=== PATIENT | male | born 2000 | race Hispanic/Latino ===

== ENCOUNTER 2019-05-03 12:23 | Inpatient (IN) | payer SELFPAY, OTHER ==
[2019-05-03 12:48] LABS: Absolute Lymphocytes (CBC) 0.9 K/uL (0.7-4.9); Basophils % 0.1 % (0-1.3); Hematocrit 38.9 % (39.6-49.0); Lymphocytes % 3.9 % (15.3-44.8); MPV 13.6 fL (7.6-11.3); RBC Red Blood Cell Count 4.57 M/uL (4.33-5.43)
[2019-05-03 13:06] LABS: Albumin 1.9 g/dL (3.4-5.0); Bilirubin Total 2.3 mg/dL (0.2-1.0)
--- NOTE | 2019-05-03 13:09 | RAD REPORT ---
EXAM DESCRIPTION: [place] Single View05/03/2019 12:57 pm CLINICAL HISTORY: Chest pain COMPARISON: none FINDINGS: Mild to moderate bilateral patchy lung opacities are present. The heart is normal size IMPRESSION: Mild to moderate bilateral patchy lung opacities may indicate a viral pneumonia.
[2019-05-03 14:02] LABS: Blood Morphology Comment NOT SEEN (NOT SEEN); Platelet Estimate DECR; Platelets, Giant PRESENT; Toxic Granulation 1+
[2019-05-03] MEDS ORDERED: ACETAMINOPHEN 500 MG TAB ONE ×2 (15:02→15:31)
--- NOTE | 2019-05-03 15:06 | ER ---
Nurse's Notes [facility] Name: Amor Limon Age: 19 yrs Sex: Male : 2000 Arrival Date: 05/03/2019 Time: 12:32 Bed 16 Private MD: Diagnosis: Severe sepsis without septic shock;Viral pneumonia, not elsewhere classified Presentation: 05/02 12:30 Onset of symptoms is unknown. 12:36 Chief complaint: EMS states: Pt was diagnosed with the flu a week ago. Pt only taking wh Nyquil states he is not getting better. Pt fever 102.3 and Tachycardic at 145. Pt states [facility] [place]. Coronavirus screen: Patient reports a subjective fever or greater than 100.4F, or cough, or shortness of breath, or difficulty breathing. Surgical mask placed on patient. Patient moved to private room, placed in contact and droplet isolation with eye protection until further assessment. Patient denies travel on a cruise ship or to a country the [facility] currently lists as an affected area. Patient denies contact with known and/or suspected case of COVID-19. Ebola Screen: Patient negative for fever greater than or equal to 101.5 degrees Fahrenheit, and additional compatible Ebola Virus Disease symptoms Patient denies exposure to infectious person. Initial Sepsis Screen: Does the patient meet any 2 criteria? RR > 20 per min. Temp <36.0*C (96.8*F)) or > 38.3*C (100.9*F). HR > 90 bpm. Does the patient have a suspected source of infection? Yes: Other: Flu If YES to both, name of provider notified: Digna Hayden MD. Risk Assessment: Do you want to hurt yourself or someone else? Patient reports no desire to harm self or others. 12:36 Method Of Arrival: EMS: [facility] 12:36 Acuity: SHANIQUE 3 Historical: - Allergies: 12:39 No Known Allergies; - Home Meds: 12:39 None [Active]; - PMHx: 12:39 None; - PSHx: 12:39 None; - Immunization history:: Adult Immunizations not up to date. - Social history:: Smoking status: Patient/guardian denies using Patient/guardian denies using alcohol, street drugs, The patient lives with family. - Family history:: not pertinent. Screenin:39 Abuse screen: Denies threats or abuse. Denies injuries from another. Nutritional screening: No deficits noted. Tuberculosis screening: No symptoms or risk factors identified. Fall Risk None identified. Assessment: 12:45 Reassessment: Pt flagged for Sepsis HR 145, RR 32, Temp 101, MD at bedside, notified of Sepsis Protocol, MD stated no need for Septic Work up now. 13:00 General: Appears in no apparent distress. Behavior is calm, cooperative, appropriate wh for age. Pain: Denies pain. Neuro: Level of Consciousness is awake, alert, obeys commands, Oriented to person, place, time, situation, Appropriate for age. Cardiovascular: Heart tones S1 S2. Respiratory: Reports shortness of breath cough that is Airway is patent Respiratory effort is even, labored, shallow, Respiratory pattern is tachypnea Breath sounds are diminished bilaterally. GI: Abdomen is flat, non-distended. : No signs and/or symptoms were reported regarding the genitourinary system. EENT: Throat is pink. Derm: Skin is intact, is healthy with good turgor, Skin is pink, warm \T\ dry. normal. Musculoskeletal: Circulation, motion, and sensation intact. 13:10 Reassessment: Spoke with MD septic work up was ordered, Pt still tachypneic. 14:10 Reassessment: Pt still tachypneic, shallow breaths at 44, lung sounds diminished, spoke wh with MD, assessment done with order to put Pt on 2LNC. 15:19 Reassessment: No changes from previously documented assessment. Patient and/or family ll1 updated on plan of care and expected duration. Pain level reassessed. Patient is alert, oriented x 3, equal unlabored respirations, skin warm/dry/pink. To bedside commode for BM. Call light within reach.. 16:15 Reassessment: No changes from previously documented assessment. Patient and/or family ll1 updated on plan of care and expected duration. Pain level reassessed. Patient is alert, oriented x 3, equal unlabored respirations, skin warm/dry/pink. 16:33 Reassessment: PUI [id number]. 17:15 Reassessment: No changes from previously documented assessment. Patient and/or family ll1 updated on plan of care and expected duration. Pain level reassessed. Patient is alert, oriented x 3, equal unlabored respirations, skin warm/dry/pink. Vital Signs: 12:36 BP 121 / 69; Pulse 142; Resp 32; Temp 101; Pulse Ox 95% ; Weight 72.57 kg; Height 5 ft. 7 in. (170.18 cm); 13:00 BP 98 / 55; Pulse 119; Resp 34; Pulse Ox 95% on R/A; 14:00 BP 117 / 73; Pulse 111; Resp 41; Pulse Ox 97% on R/A; 15:00 BP 109 / 69; Pulse 105; Resp 36; Temp 98.3; Pulse Ox 97% ; 16:00 BP 111 / 66; Pulse 106; Resp 35; Pulse Ox 98% ; ll1 16:55 BP 104 / 69; Pulse 106; Resp 34; Pulse Ox 100% on 2 lpm NC; ll1 17:25 BP 110 / 72; Pulse 100; Resp 30; Pulse Ox 99% on 2 lpm NC; Pain 0/10; ll1 18:20 BP 115 / 62; Pulse 105; Resp 30; Temp 97.0; Pulse Ox 98% on 2 lpm NC; Pain 0/10; ll1 12:36 Body Mass Index 25.06 (72.57 kg, 170.18 cm) ED Course: 12:30 Maintain EMS IV. Dressing intact. Good blood return noted. Site clean \T\ dry. Gauge \T\ yumiko 3 site: 20-gauge in RAC. Patient maintains SpO2 saturation greater than 95% on room air. 12:30 Initial lab(s) drawn, by [facility], sent to lab. jp3 12:30 Patient has correct armband on for positive identification. Bed in low position. Call jp3 light in reach. Cool cloth applied. Verbal reassurance given. Pulse ox on. NIBP on. 12:30 Arm band placed on right wrist. 12:32 Patient arrived in ED. 12:33 Digna Hayden MD is Attending Physician. ma2 12:35 Yana Celis is Primary Nurse. 12:38 Triage completed. wh 12:43 Lipase Sent. jp3 12:44 CMP Sent. jp3 12:44 CBC with Diff Sent. jp3 12:57 Chest Single View XRAY In Process Unspecified. EDMS 13:20 Inserted saline lock: 20 gauge in left antecubital area, using aseptic technique. Blood wh collected. 15:05 Amara Rodriguez MD is Hospitalizing Provider. ma2 17:35 No provider procedures requiring assistance completed. Patient admitted, IV remains in ll1 place. Administered Medications: 13:20 Drug: NS 0.9% 2000 ml Route: IV; Rate: 1 bolus; Site: left antecubital; 14:00 Follow up: Response: No adverse reaction; IV Status: Completed infusion; IV Intake: ll1 2000ml 13:30 CANCELLED (Patient ): AZITHromycin 500 mg PO once ma2 13:30 Drug: TORadol 30 mg Route: IVP; Site: left antecubital; 13:30 Drug: AZITHromycin 500 mg Route: PO; 18:34 Follow up: Response: No adverse reaction; RASS: Alert and Calm (0) [facility] 13:50 Not Given (Other Intervention Used): covid 1 application PO bolus 15:01 Not Given (Physician Discretion): AZITHromycin 500 mg IVPB once over 1 hrs; (mix in 250 wh mL NS) 15:33 Drug: Tylenol 1000 mg Route: PO; 1 18:35 Follow up: Response: No adverse reaction; Temperature is decreased; Pain is decreased; 1 RASS: Alert and Calm (0) Intake: 14:00 IV: 2000ml; Total: 2000ml. 1 Outcome: 15:06 Decision to Hospitalize by Provider. ma2 17:33 Admitted to Tele accompanied by tech, via stretcher, room Room 417, Report called to [facility] Mabel Avendaño 17:33 Condition: improved 17:33 Instructed on the need for admit. 18:33 Patient left the ED. 1 Signatures: Dispatcher [employer] EDMS Kim Valenzuela RN RN Yana Celis Digna Hayden MD MD ma2 Mina Champagne 3 Mingo Paz RN RN 1 Corrections: (The following items were deleted from the chart) 14:58 12:36 BP 121 / 69; Pulse 142bpm; Resp 22bpm; Pulse Ox 95%; Temp 101F; 72.57 kg; Height 5 ft. 7 in.; BMI: 25.0; wh 14:58 12:33 Chief complaint: [facility]
--- NOTE | 2019-05-03 15:07 | EDPHYS ---
Physician Documentation [facility] Name: Amor Limon Age: 19 yrs Sex: Male : 2000 Arrival Date: 05/03/2019 Time: 12:32 Bed 16 Private MD: ED Physician Digna Hayden HPI: 05/02 15:03 This 19 yrs old Male presents to ER via EMS with complaints of cough. ma2 15:03 he states he tested positive for flu B 7 days ago, he is here with cough and tachypnea ma2 and tachycardia x 3 days . Onset: The symptoms/episode began/occurred gradually, 1 week(s) ago. Severity of symptoms: At their worst the symptoms were moderate in the emergency department the symptoms are unchanged. Historical: - Allergies: 12:39 No Known Allergies; wh - Home Meds: 12:39 None [Active]; wh - PMHx: 12:39 None; wh - PSHx: 12:39 None; wh - Immunization history:: Adult Immunizations not up to date. - Social history:: Smoking status: Patient/guardian denies using Patient/guardian denies using alcohol, street drugs, The patient lives with family. - Family history:: not pertinent. ROS: 15:03 Constitutional: Negative for fever, chills, and weight loss. ma2 15:03 All other systems are negative. Exam: 15:03 Constitutional: This is a well developed, well nourished patient who is awake, alert, ma2 and in no acute distress. Head/Face: Normocephalic, atraumatic. Eyes: Pupils equal round and reactive to light, extra-ocular motions intact. Lids and lashes normal. Conjunctiva and sclera are non-icteric and not injected. Cornea within normal limits. Periorbital areas with no swelling, redness, or edema. ENT: Nares patent. No nasal discharge, no septal abnormalities noted. Tympanic membranes are normal and external auditory canals are clear. Oropharynx with no redness, swelling, or masses, exudates, or evidence of obstruction, uvula midline. Mucous membranes moist. Neck: Trachea midline, no thyromegaly or masses palpated, and no cervical lymphadenopathy. Supple, full range of motion without nuchal rigidity, or vertebral point tenderness. No Meningismus. Chest/axilla: Normal chest wall appearance and motion. Nontender with no deformity. No lesions are appreciated. Cardiovascular: Regular rate and rhythm with a normal S1 and S2. No gallops, murmurs, or rubs. Normal PMI, no JVD. No pulse deficits. Abdomen/GI: Soft, non-tender, with normal bowel sounds. No distension or tympany. No guarding or rebound. No evidence of tenderness throughout. Male : Normal genitalia with no discharge or lesions. Skin: Warm, dry with normal turgor. Normal color with no rashes, no lesions, and no evidence of cellulitis. MS/ Extremity: Pulses equal, no cyanosis. Neurovascular intact. Full, normal range of motion. Neuro: Awake and alert, GCS 15, oriented to person, place, time, and situation. Cranial nerves II-XII grossly intact. Motor strength 5/5 in all extremities. Sensory grossly intact. Cerebellar exam normal. Normal gait. 15:03 Respiratory: moderate respiratory distress is noted, Respirations: labored breathing, Breath sounds: bronchial sounds, Respiratory rate: 40 Vital Signs: 12:36 BP 121 / 69; Pulse 142; Resp 32; Temp 101; Pulse Ox 95% ; Weight 72.57 kg; Height 5 ft. 7 in. (170.18 cm); 13:00 BP 98 / 55; Pulse 119; Resp 34; Pulse Ox 95% on R/A; 14:00 BP 117 / 73; Pulse 111; Resp 41; Pulse Ox 97% on R/A; 15:00 BP 109 / 69; Pulse 105; Resp 36; Temp 98.3; Pulse Ox 97% ; 16:00 BP 111 / 66; Pulse 106; Resp 35; Pulse Ox 98% ; ll1 16:55 BP 104 / 69; Pulse 106; Resp 34; Pulse Ox 100% on 2 lpm NC; ll1 17:25 BP 110 / 72; Pulse 100; Resp 30; Pulse Ox 99% on 2 lpm NC; Pain 0/10; ll1 18:20 BP 115 / 62; Pulse 105; Resp 30; Temp 97.0; Pulse Ox 98% on 2 lpm NC; Pain 0/10; ll1 12:36 Body Mass Index 25.06 (72.57 kg, 170.18 cm) MDM: 12:35 Patient medically screened. ma2 15:03 Differential Diagnosis altered mental status, sepsis, flu. Differential Diagnosis ma2 altered mental status, OVID 19 vs flu vs pneumonia . Data reviewed: vital signs, nurses notes. Counseling: I had a detailed discussion with the patient and/or guardian regarding: the historical points, exam findings, and any diagnostic results supporting the discharge/admit diagnosis, the presence of at least one elevated blood pressure reading (>120/80) during this emergency department visit, the need for further work-up and treatment in the hospital. Response to treatment: the patient's symptoms have markedly improved after treatment. 05/02 12:34 Order name: CBC with Diff; Complete Time: 14:10 [facility] 05/02 12:34 Order name: CMP; Complete Time: 13:09 [facility] 05/02 12:34 Order name: Lipase; Complete Time: 13:09 [facility] 05/02 13:13 Order name: Procalcitonin; Complete Time: 14:43 [facility] 05/02 13:13 Order name: Blood Culture Adult (2) [facility] 05/02 13:13 Order name: Flu; Complete Time: 14:59 [facility] 05/02 13:13 Order name: Strep; Complete Time: 14:59 [facility] 05/02 13:50 Order name: Misc. Lab Test ss 05/02 13:54 Order name: Lactate: recollect lactate; Complete Time: 14:42 bd 05/02 14:04 Order name: Manual Differential; Complete Time: 14:10 [facility] 05/02 15:29 Order name: Throat Culture [facility] 05/02 15:51 Order name: CBC with Automated Diff [facility] 05/02 15:51 Order name: CBC with Automated Diff [facility] 05/02 12:34 Order name: Chest Single View XRAY; Complete Time: 13:29 [facility] 05/02 15:51 Order name: CBC with Automated Diff [facility] 05/02 15:51 Order name: CBC with Automated Diff [facility] 05/02 15:51 Order name: Comprehensive Metabolic Panel [facility] 05/02 15:51 Order name: Comprehensive Metabolic Panel [facility] 05/02 15:51 Order name: Comprehensive Metabolic Panel [facility] 05/02 15:51 Order name: Comprehensive Metabolic Panel [facility] 05/02 15:51 Order name: Lipid Profile [facility] 05/02 15:51 Order name: Lipid Profile [facility] 05/02 15:51 Order name: CONS Pharmacy Consult EDFL 05/02 16:50 Order name: Clear Liquid EDFL Administered Medications: 13:20 Drug: NS 0.9% 2000 ml Route: IV; Rate: 1 bolus; Site: left antecubital; 14:00 Follow up: Response: No adverse reaction; IV Status: Completed infusion; IV Intake: ll1 2000ml 13:30 CANCELLED (Patient ): AZITHromycin 500 mg PO once wv2 13:30 Drug: TORadol 30 mg Route: IVP; Site: left antecubital; 13:30 Drug: AZITHromycin 500 mg Route: PO; 18:34 Follow up: Response: No adverse reaction; RASS: Alert and Calm (0) ll1 13:50 Not Given (Other Intervention Used): covid 1 application PO bolus ss 15:01 Not Given (Physician Discretion): AZITHromycin 500 mg IVPB once over 1 hrs; (mix in 250 wh mL NS) 15:33 Drug: Tylenol 1000 mg Route: PO; ll1 18:35 Follow up: Response: No adverse reaction; Temperature is decreased; Pain is decreased; ll1 RASS: Alert and Calm (0) Disposition: 05/03/19 15:06 Hospitalization ordered by Amara Rodriguez for Inpatient Admission. Preliminary diagnosis are Severe sepsis without septic shock, Viral pneumonia, not elsewhere classified. - Bed requested for Telemetry/MedSurg (Inpatient). - Status is Inpatient Admission. ll1 - Condition is Fair. - Problem is new. - Symptoms are unchanged. Signatures: Dispatcher [employer] EDFL Mariah Ho Yana Celis Digna Hayden MD MD ma2 Mingo Paz RN RN 1 Kim Valenzuela RN ss Corrections: (The following items were deleted from the chart) 13:30 12:34 AZITHromycin 500 mg PO once ordered. ma2 ma2 16:49 15:51 Regular ordered. EDFL EDFL 17:01 13:13 LACTATE+C.LAB.BRZ ordered. EDFL EDFL 17:12 15:06 Hospitalization Ordered by Amara Rodriguez MD for Inpatient Admission. Preliminary bd diagnosis is Severe sepsis without septic shock; Viral pneumonia, not elsewhere classified. Bed requested for Telemetry/MedSurg (Inpatient). Status is Inpatient Admission. Condition is Fair. Problem is new. Symptoms are unchanged. ma2 18:33 17:12 05/03/2019 15:06 Hospitalization Ordered by Amara Rodriguez MD for Inpatient ll1 Admission. Preliminary diagnosis is Severe sepsis without septic shock; Viral pneumonia, not elsewhere classified. Bed requested for Telemetry/MedSurg (Inpatient). Status is Inpatient Admission. Condition is Fair. Problem is new. Symptoms are unchanged. bd
--- NOTE | 2019-05-03 15:48 | P.HP ---
Patient History Date of Service: 05/03/19 Reason for admission: Shortness of breath History of Present Illness: Mr Limon is 19-year-old male who presented to the ER with complaints of shortness of breath and cough. Patient reported that he tested influenza B positive 7 days ago. His symptoms started 7 days ago with subjective fever, nonproductive cough, nausea, vomiting and diarrhea. He denied any abdominal pain. Patient progressively worsened and unable to tolerate p.o. intake. He denies any sick contacts or contact with COVID19+ person nor recent travel. Up on presentation to the hospital, patient was tachypneic and tachycardic; he has been resuscitated appropriately and currently in no obvious acute distress. Allergies No Known Allergies Allergy (Unverified 05/03/19 18:45) Home Medications: NK [No Home Meds] 05/03/19 - Past Medical/Surgical History Has patient received pneumonia vaccine in the past: No Diabetic: No Past Medical History: Patient denies medical history Past Surgical History: Patient denies surgical history - Social History Smoking Status: Never smoker Smoking therapy provided: No Alcohol use: No CD- Drugs: No Caffeine use: No Review of Systems General: Fever, Chills, Sweats, Weakness, Malaise Respiratory: Cough, Shortness of Breath, SOB with Excertion, Pleuritic Pain, Wheezing Cardiovascular: Chest Pain Gastrointestinal: Nausea, Vomiting, Diarrhea Genitourinary: Unremarkable Musculoskeletal: Unremarkable Integumentary: Unremarkable Neurological: Unremarkable Lymphatics: Unremarkable Physical Examination - Physical Exam General: Alert, In no apparent distress HEENT: Atraumatic, PERRLA, Mucous membr. moist/pink, EOMI, Sclerae nonicteric Neck: Supple, 2+ carotid pulse no bruit, No LAD, Without JVD or thyroid abnormality Respiratory: Diminished, Crackles/rales Cardiovascular: Regular rate/rhythm, Normal S1 S2 Gastrointestinal: Normal bowel sounds, No tenderness Musculoskeletal: No tenderness Integumentary: No rashes Neurological: Normal gait, Normal speech, Normal strength at 5/5 x4 extr, Normal tone, Normal affect Lymphatics: No axilla or inguinal lymphadenopathy - Studies Laboratory Data (last 24 hrs) 05/03/19 12:30: Sodium 133 L, Potassium 3.0 L, BUN 19 H, Creatinine 1.06, Glucose 145 H, Total Bilirubin 2.3 H, AST 30, ALT 19, Alkaline Phosphatase 145 H , Lipase 52 L 05/03/19 12:30: WBC 23.9 H*, Hgb 13.3 L, Hct 38.9 L, Plt Count 33 L* Microbiology Data (last 24 hrs): 05/03/19 13:26 Throat Group A Streptococcus Rapid Screen - Final 05/03/19 13:26 Nasopharnyx Influenza Type A Antigen Screen - Final 05/03/19 13:26 Nasopharnyx Influenza Type B Antigen Screen - Final Assessment and Plan Discharge Plan: Home - Advance Directives Does patient have a Living Will: No Does patient have a Durable POA for Healthcare: No Physician Review: Patient Assessed, Agree with Above Assessment and Plan Physician Review Additional Text: Mr. Limon is 19 y/o male pw cough and sob. #Severe sepsis 2/2 to viral pneumonia- POA. patient meeting severe sepsis criteria. Maintaining BP and MAP > 65 - Tbili & procal elevated. Lactic acid wnl. - IV hydration. Maintain perfusion -supportive measures. #Viral pneumonia- CXR with bilateral infiltrates consistent with viral pneumonia. He was hypoxic and in resp distress on presentation. Also with GI symptoms, all consistent with viral etiology. -COVID19 suspected, patient in isolation. Swab has been sent. -Influenza negative. -supportive measures have been initiated. -consult Infectious Disease and upholstery auto trimmer for assistance. #Shortness of breath-on nasal cannula with saturations greater than 90% -low threshold for intubation. -monitor closely. -serial CXR #Thrombocytopenia and lymphopenia-all consistent with viral etiology. -supportive measures and monitor for bleeding. #Electrolyte imbalance-hypokalemia and hypo natremia secondary to hypovolemia. -will replace. -monitor closely with daily labs. #Hyperglycemia-secondary to sepsis. Patient denies prior history of diabetes. #Vomiting and diarrhea-last episode was yesterday. Seems to have resolved. -clear liquid diet until tolerating well. DVT ppx- SCD Patient is full code. Dispo- inpatient
[2019-05-03] MEDS: NA CHLORIDE 0.9% 1,000 ML IV SCH (18:58)
[2019-05-03] MEDS ORDERED: POTASSIUM 25 MEQ EFFERV TAB PO ONE (22:09)
[2019-05-03] MEDS ORDERED: AZITHROMYCIN IV 500 MG in NA CHLORIDE 0.9% 250 ML IVPB ONE (22:29)
[2019-05-03] MEDS: GUAIFENESIN/CODEINE 5ML UCUP PO PRN (23:21)
[2019-05-03] MEDS: ACETAMINOPHEN 325 MG TABLET PO PRN (23:45)
[2019-05-04] MEDS ORDERED: ALBUTEROL INHALER 60 PUFF/8 GM IH PRN ×2 (03:49→04:06)
[2019-05-04] MEDS: NA CHLORIDE 0.9% 1,000 ML IV SCH ×2 (04:49→13:00)
[2019-05-04] MEDS: ACETAMINOPHEN 325 MG TABLET PO PRN ×2 (04:49→16:05)
[2019-05-04] MEDS ORDERED: ACETAMINOPHEN 500 MG TAB PO SCH (05:53)
[2019-05-04 07:25] LABS: Urine Appearance CLEAR; Urine Blood NEGATIVE (NEG); Urine Color DK YELLOW; Urine Glucose NEGATIVE (NEG); Urine Protein 1+ (NEG); Urine Specific Gravity 1.025 (1.005-1.030); Urine pH 6.5 (5.0-7.0)
[2019-05-04 07:27] LABS: Absolute Lymphocytes (CBC) 0.8 K/uL (0.7-4.9); Basophils % 0.1 % (0-1.3); Hematocrit 33.3 % (39.6-49.0); Lymphocytes % 3.7 % (15.3-44.8); MPV 13.7 fL (7.6-11.3); RBC Red Blood Cell Count 3.89 M/uL (4.33-5.43)
[2019-05-04 07:45] LABS: ALT/SGPT 18 U/L (12-78); AST/SGOT 31 U/L (15-37); Albumin 1.7 g/dL (3.4-5.0); Alkaline Phosphatase 115 U/L (45-117); BUN Blood Urea Nitrogen 18 mg/dL (7-18); Bicarbonate 23 mmol/L (21-32); Glucose Level 109 mg/dL (74-106); HDL Cholesterol 11 mg/dL (40-60); LDL Cholesterol, Calculated 13 (<130); Potassium 3.3 mmol/L (3.5-5.1); Protein, Total 5.4 g/dL (6.4-8.2); Sodium Level 136 mmol/L (136-145)
[2019-05-04 07:46] LABS: Protime INR 1.77
[2019-05-04] MEDS ORDERED: POTASSIUM CL SA 10 MEQ TAB PO ONE ×2 (08:16→17:20)
[2019-05-04 08:23] LABS: Urine Amorphous Sediment 1+ /HPF (NONE SEEN); Urine Bacteria NONE SEEN /HPF (NONE SEEN); Urine Bilirubin 1+ (NEG); Urine Culture Reflex Order REFLEXED
[2019-05-04] MEDS: CEFTRIAXONE/SWI 1gm 1 GM/10 ML SYR IV SCH ×2 (08:36→20:30)
[2019-05-04] MEDS: AZITHROMYCIN IV 250 MG in NA CHLORIDE 0.9% 250 ML IVPB SCH (08:37)
[2019-05-04] MEDS: GUAIFENESIN/CODEINE 5ML UCUP PO PRN (08:50)
[2019-05-04] MEDS ORDERED: CEFTRIAXONE 1 GM/NS 50 ML 1 GM/50 ML BAG IV SCH (09:00)
[2019-05-04] MEDS: TRAMADOL HCL 50 MG TAB PO PRN ×2 (10:45→20:48)
--- NOTE | 2019-05-04 11:48 | RAD REPORT ---
EXAM DESCRIPTION: CT - Chest For Pe Angio - 05/04/2019 11:10 am CLINICAL HISTORY: Chest pain/elevated D-dimer COMPARISON: None. TECHNIQUE: Dynamically enhanced axial 3 mm thick images of the chest were obtained during administra tion of <100> mL Isovue 370 IV contrast. Coronal and oblique reconstruction images were generated and reviewed. Exam utilizes a protocol for optimal evaluation of pulmonary arterial tree. Maximum intensity projections 3D imaging was utilized All CT scans are performed using dose optimization technique as appropriate and may include automated exposure control or mA/KV adjustment according to patient size. FINDINGS: The opacification of the pulmonary arteries is suboptimal. A central pulmonary embolus is not seen. A thoracic aortic aneurysm is not noted. Small bilateral pleural effusions with lower lobe atelectasis. Bilateral nodular opacities measuring up to 18 millimeters. Small bilateral areas consolidation IMPRESSION: No gross evidence of a pulmonary embolus Bilateral nodular opacities and small areas of consolidation. This is nonspecific. It does not have a classic viral pneumonia appearance. Other considerations include bacterial and fungal infection as w ell as septic emboli
--- NOTE | 2019-05-04 12:17 | P.CNS ---
Date of Consult: 05/04/19 Reason for Consult: Pneumonia Chief Complaint: Pneumonia History of Present Illness: Patient is 19 years of age admitted with pneumonia blood cultures are positive also hypoxic complaining of shortness of breath. Fever nonproductive cough nausea vomiting diarrhea no recent history of travel or COVID contact the patient is tachypneic tachycardic information obtained from records review COVID19 test is pending Allergies No Known Allergies Allergy (Unverified 05/03/19 18:45) Home Medications: NK [No Home Meds] 05/03/19 - Past Medical/Surgical History Diabetic: No - Social History Alcohol use: No CD- Drugs: No Caffeine use: No Review of Systems is unable to be obtained Physical Examination Temp Pulse Resp BP Pulse Ox 100.2 F 115 H 36 H 124/66 94 05/04/19 09:29 05/04/19 04:00 05/04/19 10:45 05/04/19 04:00 05/04/19 10:45 Laboratory Data (last 24 hrs) 05/03/19 12:30: Sodium 133 L, Potassium 3.0 L, BUN 19 H, Creatinine 1.06, Glucose 145 H, Total Bilirubin 2.3 H, AST 30, ALT 19, Alkaline Phosphatase 145 H, Lipase 52 L 05/03/19 12:30: WBC 23.9 H*, Hgb 13.3 L, Hct 38.9 L, Plt Count 33 L* - Problems (1) Pneumonia Current Visit: Yes Status: Acute Plan: The patient is 19 years of age in new CVA community acquired pneumonia the c ultures are positive for gram-positive cocci in pairs and chains continue with Rocephin continuous pulse ox the patient is D-dimer is elevated also has bilateral pleural effusions study unlikely that he has COVID 19 infection
--- NOTE | 2019-05-04 12:56 | P.PN ---
Subjective Date of Service: 05/04/19 Chief Complaint: Pneumonia Subjective: Worsening (SOB; Fever) Physical Examination - Vital Signs Temperature: 100.2 F Blood Pressure: 124/66 Pulse: 115 Respirations: 36 Pulse Ox (%): 94 - Physical Exam General: Alert, In no apparent distress, Oriented x3 HEENT: Atraumatic, PERRLA, EOMI Neck: Supple, JVD not distended Respiratory: Diminished, Crackles/rales Cardiovascular: Regular rate/rhythm, Normal S1 S2 Gastrointestinal: Normal bowel sounds, No tenderness Musculoskeletal: No tenderness Integumentary: No rashes Neurological: Normal speech, Normal tone, Normal affect Lymphatics: No axilla or inguinal lymphadenopathy - Studies Laboratory Data (last 24 hrs) 05/03/19 12:30: Sodium 133 L, Potassium 3.0 L, BUN 19 H, Creatinine 1.06, Glucose 145 H, Total Bilirubin 2.3 H, AST 30, ALT 19, Alkaline Phosphatase 145 H , Lipase 52 L 05/03/19 12:30: WBC 23.9 H*, Hgb 13.3 L, Hct 38.9 L, Plt Count 33 L* Microbiology Data (last 24 hrs): 05/03/19 13:20 Blood - Blood Blood Culture Gram Stain - Final 05/03/19 13:26 Throat Group A Streptococcus Rapid Screen - Final 05/03/19 13:26 Nasopharnyx Influenza Type A Antigen Screen - Final 05/03/19 13:26 Nasopharnyx Influenza Type B Antigen Screen - Final Assessment & Plan Physician Review: Patient Assessed, Agree with Above Assessment and Plan Physician Review Additional Text: Mr. Limon is 19 y/o male pw cough and sob. #Severe sepsis 2/2 to pneumonia- POA. patient meeting severe sepsis criteria. Maintaining BP and MAP > 65 - Tbili & procal elevated. Lactic acid wnl. - IV hydration. Maintain perfusion -supportive measures. #Pneumonia- CXR with bilateral infiltrates consistent with viral pneumonia. CT chest against. With infiltrates, also concerning for septic embolic. Check TTE. -with bacteremia, more suggestive of bacteria. GPC in chains and clusters. - still febrile, will consider escalating. add vanc to cover MRSA -COVID19 suspected, patient in isolation. Swab has been sent. -Influenza negative. -supportive measures have been initiated. -consulted Infectious Disease and production roustabout for assistance. #Shortness of breath-on nasal cannula with saturations greater than 90% -low threshold for intubation. -monitor closely. -serial CXR for improvment. #Thrombocytopenia and lymphopenia-improving. -supportive measures and monitor for bleeding. #Electrolyte imbalance-hypokalemia and hyponatremia secondary to hypovolemia. -will replace. -monitor closely with daily labs. #Hyperglycemia-secondary to sepsis. Patient denies prior history of diabetes. #Vomiting and diarrhea-advance to full liquid. DVT ppx- SCD Patient is full code. Dispo- inpatient
--- NOTE | 2019-05-04 14:07 | CON ---
History Of Present Illness: This is a 19-year-old male who has been having problem with breathing fo r last 2 weeks, coming in with severe shortness of breath, shivers, chills, and fevers. Patient has a strep. Patient has gram-positive cocci positive in his blood cultures. Patient continued to have productive cough with yellowish sputum and fever as high as 102. The patient also has nausea and vom iting. Denies any other problems at this time except for chest pain especially when he takes deep br eaths. Past Medical History: None. Family History: Noncontributory. Medications: Zithromax, Rocephin, and vancomycin has been recently added. See MAR for other medicat ions. Allergies: NO KNOWN DRUG ALLERGIES. Review of Systems: A 10-point review was performed. Physical Examination: General: This is a 19-year-old male, lying in bed with mild respiratory distress. Vital Signs: T-max of 102, right now 100.2; heart rate of 115; respirations 36; and blood pressure 1 24/66. HEENT: Unremarkable. Neck: Supple. Lungs: Basal crackles and scattered rhonchi on the left side. Heart: S1, S2. Regular. Abdomen: Soft, nontender. Bowel sounds present. Extremities: No edema muscle tone. Laboratory Data: Shows WBC 21,900, hemoglobin 11.3, platelets 43. Sodium 136, potassium 3.3, chlori de 105, bicarb 23, BUN 18, creatinine 0.8, glucose is 109, albumin is 1.7. Procalcitonin is 50. Suhail ro data is blood cultures are growing gram-positive cocci in anaerobic. Serum cultures are pending. Rapid strep negative. Influenza A and B antigen are negative. Assessment And Plan: This is a 19-year-old male with fever, shortness of breath and chest discomfort . Blood cultures are being positive for gram-positive cocci. CT scan shows patient has no embolus, but bilateral nodular opacities and a small area of consolidation. This is nonspecific and does not have a classic viral pneumonia appearance. Continue empiric antibiotic with vancomycin, Rocephin, an d Zithromax pending culture results. Consider transferring the patient to the ICU for next 24 hours for close observation and monitoring of vital signs. We will follow the patient closely. Thank you for consult. NF/MODL Voice ID: [id number] Report ID: [id number]
[2019-05-04] MEDS ORDERED: FUROSEMIDE 40 MG/4 ML VIAL IV ONE ×2 (14:08→15:00)
[2019-05-04] MEDS: VANCOMYCIN 1.25 GM in NA CHLORIDE 0.9% 250 ML IVPB SCH (16:06)
[2019-05-04] MEDS ORDERED: ACETAMINOPHEN 325 MG TABLET PO SCH (19:00)
[2019-05-04] MEDS: ACETAMINOPHEN 325 MG TABLET PO SCH (20:30)
[2019-05-04] MEDS ORDERED: VANCOMYCIN IVPB SCH (21:00)
[2019-05-04] MEDS ORDERED: NA CHLORIDE 0.9% IVPB SCH (21:00)
[2019-05-05] MEDS: ACETAMINOPHEN 325 MG TABLET PO SCH ×5 (00:55→21:13)
[2019-05-05] MEDS: VANCOMYCIN 1.25 GM in NA CHLORIDE 0.9% 250 ML IVPB SCH ×2 (00:55→14:45)
[2019-05-05] MEDS: TRAMADOL HCL 50 MG TAB PO PRN ×3 (05:16→21:38)
[2019-05-05 05:57] LABS: Absolute Lymphocytes (CBC) 1.4 K/uL (0.7-4.9); Hematocrit 34.2 % (39.6-49.0); Lymphocytes % 4.7 % (15.3-44.8); MPV 12.9 fL (7.6-11.3); RBC Red Blood Cell Count 3.97 M/uL (4.33-5.43)
[2019-05-05 06:29] LABS: ALT/SGPT 19 U/L (12-78); AST/SGOT 35 U/L (15-37); Albumin 1.6 g/dL (3.4-5.0); Alkaline Phosphatase 118 U/L (45-117); BUN Blood Urea Nitrogen 17 mg/dL (7-18); Bicarbonate 25 mmol/L (21-32); Bilirubin Total 2.2 mg/dL (0.2-1.0); Glucose Level 88 mg/dL (74-106); Protein, Total 5.7 g/dL (6.4-8.2); Sodium Level 138 mmol/L (136-145)
[2019-05-05 08:48] LABS: Platelet Estimate DECR
[2019-05-05 08:49] LABS: Anisocytosis 1+; Blood Morphology Comment NOTED (NOT SEEN); Target Cells 2+; Toxic Granulation 2+
[2019-05-05] MEDS: CEFTRIAXONE/SWI 1gm 1 GM/10 ML SYR IV SCH (09:00)
[2019-05-05] MEDS: AZITHROMYCIN IV 250 MG in NA CHLORIDE 0.9% 250 ML IVPB SCH (09:00)
[2019-05-05] MEDS: PHENOL 1.4% ORAL SPRAY 180ML MM PRN ×3 (09:50→17:30)
[2019-05-05] MEDS: GUAIFENESIN/CODEINE 5ML UCUP PO PRN (09:50)
--- NOTE | 2019-05-05 10:12 | RAD REPORT ---
EXAM DESCRIPTION: RAD - Chest Single View - 05/05/2019 9:51 am CLINICAL HISTORY: follow uppneumonia COMPARISON: May 02 portable chest I am going to May 03 CT chest TECHNIQUE: AP portable chest image was obtained 05/05/2019 9:51 am . FINDINGS: Lung volumes are reduced compared to the portable chest examination. Bilateral lung base p leural effusions with lower lobe infiltrate and/ or atelectasis again noted. Focal opacification in t he left midlung field has not changed. Patchy areas of nodularity are present similar to comparison. No improvement since prior imaging. Trachea is midline. Heart size is normal. No measurable pleural e ffusion and no pneumothorax. No acute bony abnormality seen. No acute aortic findings suspected. IMPRESSION: Bilateral pleural effusions with left greater than right lung base parenchymal opacifica tion. Scattered infiltrate changes are present in the mid and upper lung stewart. Chest examination is not substantially different from the prior day CT study.
[2019-05-05 10:22] LABS: RBC Red Blood Cell Count 3.66 M/uL (4.33-5.43)
[2019-05-05 10:24] LABS: Protime INR 2.09
[2019-05-05 10:31] LABS: Bilirubin Direct 1.4 mg/dL (0-0.2)
--- NOTE | 2019-05-05 12:13 | P.PN ---
Subjective Date of Service: 05/05/19 Chief Complaint: Pneumonia Events in last 24 hours noted. Moved to icu yesterday due worsened respiratory distress and hypoxia. remains on 40% ventimask. Febrile early this morning. Denies any new complaints. Continues to feel weak. Review of Systems General: Fever, Chills, Sweats, Weakness Respiratory: Shortness of Breath, SOB with Excertion, Pleuritic Pain Physical Examination - Vital Signs Temperature: 98.8 F Blood Pressure: 108/60 Pulse: 101 Respirations: 44 Pulse Ox (%): 97 - Physical Exam General: Alert, Mild distress HEENT: Atraumatic, PERRLA, EOMI Neck: Supple, JVD not distended Respiratory: Clear to auscultation bilaterally, Diminished (R Base < left), Crackles/rales Cardiovascular: Normal S1 S2, Irregular heart rate/rhythm (Tachycardia) Gastrointestinal: Normal bowel sounds, No tenderness, No masses, No rebound Musculoskeletal: No tenderness Integumentary: No rashes Neurological: Normal speech, Normal tone, Normal affect Lymphatics: No axilla or inguinal lymphadenopathy - Studies Laboratory Tests 05/05/19 05/05/19 05:24 10:06 Sodium 138 Potassium 4.0 Chloride 105 Carbon Dioxide 25 Calcium 7.4 L Direct Bilirubin 1.4 H Serum Total Protein 5.7 L Albumin 1.6 L Globulin 4.1 H Albumin/Globulin Ratio 0.4 L Laboratory Tests 05/05/19 05/05/19 05/05/19 05:24 10:06 10:06 WBC 28.7 H* D RBC 3.97 L Hgb 11.5 L Hct 34.2 L RDW 15.3 H Plt Count 58 L D MPV 12.9 H Neutrophils % 86.4 H Lymphocytes % 4.7 L Absolute Neutrophils 24.8 H Segmented Neutrophils 83 H Band Neutrophils 7 H Lymphocytes 6 L Absolute Monocytes 2.4 H Absolute Retic 0.01 L Percent Retic 0.25 L PT 24.3 H INR 2.09 APTT 31.6 Microbiology Data (last 24 hrs): 05/03/19 13:26 Throat Culture & Sensitivity - Final NORMAL UPPER RESPIRATORY TIMA GROWN. 05/03/19 13:40 Blood - Blood Blood Culture Gram Stain - Final 05/03/19 13:20 Blood - Blood Blood Culture Gram Stain - Final Microbiology 05/03/19 13:40 Blood - Blood Blood Culture Gram Stain - Final 05/03/19 13:20 Blood - Blood Blood Culture Gram Stain - Final 05/03/19 13:40 Blood - Blood Aerobic Blood Culture - Preliminary 05/03/19 13:40 Blood - Blood Anaerobic Blood Culture - Preliminary 05/03/19 13:20 Blood - Blood Aerobic Blood Culture - Preliminary 05/03/19 13:20 Blood - Blood Gram Stain - Preliminary Imagings Data: IMPRESSION: Bilateral pleural effusions with left greater than right lung base parenchymal opacification. Scattered infiltrate changes are present in the mid and upper lung stewart. Chest examination is not substantially different from the prior day CT study. Medications List Reviewed: Yes Assessment & Plan Physician Review: Patient Assessed, Agree with Above Assessment and Plan Physician Review Additional Text: Mr. Limon is 19 y/o male pw cough and sob. #Severe sepsis 2/2 to pneumonia- Severe sepsis POA. Maintaining BP and MAP > 65 - Tbili & procal elevated. Lactic acid wnl. - IV hydration. Maintain perfusion - Continue azithromycin, cefepime and vanc - supportive measures. #Pneumonia with bacteremia- CXR with bilateral infiltrates consistent with viral pneumonia. CT chest against. With infiltrates, also concerning for septic embolic. TTE pending . Leukocytosis and procalcitonin worsen. Toxic granulation on differential. - GPC in chains and clusters, final culture to result today. - still febrile. Monitor closely. -COVID19 suspected, patient in isolation. Swab has been sent. -Influenza negative. -Elevated T bili-hemolysis ruled out -consulted Infectious Disease and medical officer for assistance. Recommendation appreciated # acute respiratory distress-now requiring Ventimask to maintain saturation greater than 90%. -patient is tachypneic and tachycardic as well. -low threshold for intubation. -hold off NIV pending COVID19 negative -serial CXR for improvment. #Coagulopathy secondary to sepsis-DIC is unlikely due to elevated fibrinogen, unless of subclinical DIC. PT/INR and PTT is prolonged. -no significant bleeding. -tea-colored urine noted. -treat underlining etiology. No indication for reversal of coagulopathy. -monitor for bleeding -discussed with actuarial science professor infrastructure consultant. #Thrombocytopenia- due to sepsis. Improving. #Electrolyte imbalance-hypokalemia and hyponatremia secondary to hypovolemia. -will replace. -monitor closely with daily labs. #Hyperglycemia-secondary to sepsis. Patient denies prior history of diabetes. #Vomiting and diarrhea-now resolved DVT ppx- SCD Patient is full code. Dispo- inpatient
--- NOTE | 2019-05-05 12:58 | P.CNS ---
Date of Consult: 05/05/19 (Hematology) PHONE CONSULT History of present illness as per Dr Rodriguez and chart review. Hematology consulted for evaluation of severe thrombocytopenia and deranged coagulation panel. Patient currently in ICU undergoing treatment for gram positive septicemia and management of respiratory distress secondary to b/l pneumonia. No recent exposure to heparin products. No bleeding or bruising. No known liver disease. Labs reviewed. wbc 28K Hb 11.5g (13g) plt 58K<---43K <----33K toxic granulation+ giant plt+ retic 0.25%/RBC 3.66/LDH 216/ Total bili2.2/ direct 1.4 PT 24/PTT 31/INR 2 (1.77) fibrinogen 600 AST35/ALT19/ALP 118 Alb 1.6 Procalcitonin 69 MICRO-GPC CT: b/l nodular opacities/ small pleural effusion PROBLEMS: 1. Gram positive septicemia 2. Pneumonia / ? septic emboli 3. thrombocytopenia 4. Coagulopathy 5. Hypoalbuminemia Recommendations: Review and discussion of the labs with Dr Reyes and recommendations also discussed over phone. 1. Severe thrombocytopenia: Multifactorial predominantly likely from underlying sepsis, medications, acute stress. No evidence of hemolysis. No evidence of TTP as per lab review (peripheral smear pending). Unknown plt baseline. But counts are slowly uptrending since admission. No intervention at this time as patient reportedly has no bleeding or excessive bruising. - Treat underlying sepsis. - Transfuse single donor platelets if bleeding and plt count is less than 50,000 - Transfuse single donor platelets if plt count less than 15,000 2. Coagulopathy: Also likely due to same etiology. Likely has DIC secondary to underlying sepsis. (elevated PT, D dimers). Fibrinogen is adequate. No intervention at this time as patient reportedly has no bleeding or excessive bruising. - Transfuse FFP if bleeding or needs any procedures. - No indication of cryoprecipitate at this time. - Continue to monitor. Daily cbc, PT PTT, Fibrinogen 3. Management of Problems 1,2,5 as per primary medical team. Please call Hematology fashion supervisor if any concerns or change in status.
[2019-05-05] MEDS: CEFEPIME/SWI 1gm 10 ML IVP SCH ×2 (15:00→21:13)
[2019-05-05] MEDS ORDERED: ACETAMINOPHEN 325 MG TABLET ONE (15:55)
[2019-05-05] MEDS ORDERED: LORazepam 2 MG/ML VIAL IV PRN (16:09)
[2019-05-05] MEDS ORDERED: MORPHINE 2 MG/ML SYR IV ONE ×2 (17:00)
[2019-05-05 17:42] LABS: ALT/SGPT 22 U/L (12-78); AST/SGOT 44 U/L (15-37); Albumin 1.5 g/dL (3.4-5.0); Alkaline Phosphatase 107 U/L (45-117); BUN Blood Urea Nitrogen 18 mg/dL (7-18); Bicarbonate 23 mmol/L (21-32); Bilirubin Total 1.8 mg/dL (0.2-1.0); Glucose Level 105 mg/dL (74-106); Potassium 3.7 mmol/L (3.5-5.1); Protein, Total 5.3 g/dL (6.4-8.2); Sodium Level 135 mmol/L (136-145)
[2019-05-05] MEDS: MORPHINE 2 MG/ML SYR IV PRN (18:37)
[2019-05-05] MEDS ORDERED: CEFEPIME 1 GM/VIAL IV SCH (21:00)
[2019-05-05 21:48] LABS: Urine Appearance CLEAR; Urine Blood NEGATIVE (NEG); Urine Color DK YELLOW; Urine Glucose NEGATIVE (NEG); Urine Protein 1+ (NEG); Urine Specific Gravity 1.025 (1.005-1.030)
[2019-05-05 21:56] LABS: Urine Bilirubin NEGATIVE (NEG)
[2019-05-05 21:57] LABS: Urine Bacteria <20 /HPF (NONE SEEN); Urine Culture Reflex Order NOT NEEDED; Urine RBC <5 /HPF (NONE SEEN)
[2019-05-05 21:58] LABS: Barbiturates NEGATIVE (NEGATIVE); Benzodiazepines NEGATIVE (NEGATIVE); Cocaine NEGATIVE (NEGATIVE); METHAMPHETAM NEGATIVE (NEGATIVE); Methadone NEGATIVE (NEGATIVE); Opiates POSITIVE (NEGATIVE); Phencyclidine NEGATIVE (NEGATIVE); THC Cannibis POSITIVE (NEGATIVE)
[2019-05-05 21:59] LABS: Urine Amorphous Sediment 2+ /HPF (NONE SEEN)
[2019-05-06] MEDS: VANCOMYCIN 1.25 GM in NA CHLORIDE 0.9% 250 ML IVPB SCH (01:43)
[2019-05-06] MEDS: GUAIFENESIN/CODEINE 5ML UCUP PO PRN ×3 (01:43→22:11)
[2019-05-06] MEDS: PHENOL 1.4% ORAL SPRAY 180ML MM PRN ×3 (01:51→12:30)
[2019-05-06] MEDS: ACETAMINOPHEN 325 MG TABLET PO SCH ×4 (03:31→21:41)
[2019-05-06 06:11] VITALS: BMI 28.0
[2019-05-06 06:16] LABS: Absolute Lymphocytes (CBC) 1.8 K/uL (0.7-4.9); Basophils % 0.2 % (0-1.3); Hematocrit 29.9 % (39.6-49.0); Lymphocytes % 5.8 % (15.3-44.8); MPV 11.7 fL (7.6-11.3); RBC Red Blood Cell Count 3.47 M/uL (4.33-5.43)
[2019-05-06 06:34] LABS: Protime INR 2.42
[2019-05-06 07:40] LABS: ALT/SGPT 22 U/L (12-78); AST/SGOT 38 U/L (15-37); Albumin 1.4 g/dL (3.4-5.0); Alkaline Phosphatase 127 U/L (45-117); BUN Blood Urea Nitrogen 16 mg/dL (7-18); Bicarbonate 24 mmol/L (21-32); Bilirubin Total 1.8 mg/dL (0.2-1.0); Glucose Level 88 mg/dL (74-106); Potassium 3.9 mmol/L (3.5-5.1); Protein, Total 5.3 g/dL (6.4-8.2); Sodium Level 136 mmol/L (136-145)
[2019-05-06 08:21] LABS: Platelet Estimate DECR; Platelets, Giant PRESENT; Toxic Granulation 1+
[2019-05-06 08:22] LABS: Anisocytosis 1+; Blood Morphology Comment NOTED (NOT SEEN); Dohle Bodies PRESENT; Target Cells 1+
[2019-05-06] MEDS: TRAMADOL HCL 50 MG TAB PO PRN (08:59)
[2019-05-06] MEDS: MORPHINE 2 MG/ML SYR IV PRN ×5 (08:59→23:05)
[2019-05-06] MEDS: ACETAMINOPHEN 500 MG TAB PO SCH ×3 (09:00→16:19)
[2019-05-06] MEDS: CEFEPIME/SWI 1gm 10 ML IVP SCH ×2 (09:09→20:33)
[2019-05-06] MEDS: FLUCONAZOLE 100mg IVPB 100 MG/50 ML BAG IV SCH (09:36)
[2019-05-06] MEDS ORDERED: IPRATROPIUM BROM 0.5MG/2.5ML NEB ONE (10:23)
[2019-05-06] MEDS ORDERED: ALBUTEROL 2.5 MG/3 ML NEB SOL NEB ONE (10:24)
--- NOTE | 2019-05-06 11:23 | P.PN ---
Subjective Date of Service: 05/06/19 Chief Complaint: Pneumonia Remained febrile overnight. reports feeling better this morning. Still with pleuritic bilateral flank pain. SOB is stable. No new complaints. COVID19 ruled out. Physical Examination - Vital Signs Temperature: 100.8 F Blood Pressure: 127/66 Pulse: 110 Respirations: 43 Pulse Ox (%): 95 - Physical Exam General: Alert, In no apparent distress HEENT: Atraumatic, PERRLA, EOMI Neck: Supple, JVD not distended Respiratory: Diminished, Dull, Crackles/rales Cardiovascular: Normal S1 S2, Irregular heart rate/rhythm (Sinus tachycardia) Capillary refill: <2 Seconds Gastrointestinal: Normal bowel sounds, No tenderness Musculoskeletal: No tenderness Integumentary: No rashes Neurological: Normal speech, Normal tone, Normal affect Lymphatics: No axilla or inguinal lymphadenopathy - Studies Laboratory Tests 05/05/19 05/06/19 05/06/19 10:06 05:38 05:38 Hgb 10.1 L Hct 29.9 L Plt Count 123 L D Neutrophils % 88.6 H Toxic Granulation 1+ Dohle Bodies Present Giant Platelets Present Absolute Retic 0.01 L Percent Retic 0.25 L PT INR APTT Sodium 136 Potassium 3.9 Chloride 104 BUN 16 Total Bilirubin 1.8 H AST 38 H Procalcitonin 05/06/19 05/06/19 05:38 05:38 Hgb Hct Plt Count Neutrophils % Toxic Granulation Dohle Bodies Giant Platelets Absolute Retic Percent Retic PT 28.1 H INR 2.42 APTT 33.0 Sodium Potassium Chloride BUN Total Bilirubin AST Procalcitonin 42.50 H Microbiology Data (last 24 hrs): 05/03/19 13:20 Blood - Blood Blood Culture Gram Stain - Final 05/03/19 13:26 Throat Culture & Sensitivity - Final NORMAL UPPER RESPIRATORY TIMA GROWN. Medications List Reviewed: Yes Assessment & Plan Physician Review: Patient Assessed, Agree with Above Assessment and Plan Physician Review Additional Text: Mr. Limon is 19 y/o male pw cough and sob. #Severe sepsis 2/2 to pneumonia- Severe sepsis POA. Maintaining BP and MAP > 65 - Tbili & procal elevated. Lactic acid wnl. - IV hydration. Maintain perfusion - Revised abx- on cefepime, vanc and diflucan added for fungal coverage. Consider merrem if no improvement or fever persists on cefepime. - Continue supportive measures. #Pneumonia with bacteremia- CT chest with significant infiltrates, also concerning for septic embolic. TTE neg for vegetations. Leukocytosis worsen and procalcitonin improving. Toxic granulation on differential. - GPC in chains and clusters, still awaiting final result. - still febrile. Monitor closely. -COVID19 ruled out. -Influenza negative. -Elevated T bili-hemolysis ruled out -consulted Infectious Disease and court collections officer for assistance. Recommendation appreciated #Acute respiratory distress-Due to pnuemonia. BIPAP PRN -patient is tachypneic and tachycardic as well. -low threshold for intubation. -Duoneb, pulm toileting. -serial CXR as needed. -bilateral pleural effusion, follow closely #Coagulopathy secondary to sepsis-DIC is unlikely due to elevated fibrinogen, unless of subclinical DIC. PT/INR and PTT is prolonged. -no significant bleeding. -tea-colored urine noted. Hematuria rule dout -treat underlining etiology. No indication for reversal of coagulopathy. -monitor for bleeding -discussed with fabrication inspector information security risk analyst. #Thrombocytopenia- due to sepsis. Improving. #Electrolyte imbalance-hypokalemia and hyponatremia secondary to hypovolemia. -will replace. -monitor closely with daily labs. #Hyperglycemia-secondary to sepsis. Patient denies prior history of diabetes. #Vomiting and diarrhea-now resolved DVT ppx- SCD Patient is full code. Dispo- inpatient
--- NOTE | 2019-05-06 11:39 | PN ---
Subjective: Patient is in ICU, feels slightly better today, has a spiking temperature of 103 this mo rning and his white blood cell has also jumped up to 30,000. The patient continues to be slightly sh ort of breath on oxygen nasal cannula with a heart rate of 110. Objective: Vital Signs: Blood pressure 127/66. Lungs: Clear. Heart: S1, S2. Regular. Abdomen: Soft. Bowel sounds present. Extremities: No edema. Laboratory Data: Shows WBC 30,000, hemoglobin 10.1, platelets 123. Chemistry shows, sodium 136, pot assium 3.9, chloride 104, bicarb 24, BUN 16, creatinine 0.6, glucose is 88, albumin level is 1.4. Assessment And Plan: Respiratory failure in a 19-year-old male with a history of vape, COVID-19 is n egative. Cultures are coming negative for now. We will repeat another set of blood culture, current ly being treated with empiric antibiotic including cefepime and vancomycin. Patient is also on fluco nazole 100 mg daily. If not improved, we will recommend to switch patient from cefepime to Zosyn to increase coverage for anaerobic and we will follow up on culture. Continue respiratory care and moses tor for signs of infection. Patient can also be started on ibuprofen if needed to break the fevers. NF/MODL Voice ID: [id number] Report ID: [id number]
--- NOTE | 2019-05-06 11:57 | ECHO ---
HEIGHT: 5 ft 7 in WEIGHT: 179 lb 5 oz DATE OF STUDY: 05/05/[address]: Amara Rodriguez 2-DIMENSIONAL: YES M.MODE: YES DOPPLER: NO COLOR FLOW: NO TDS: NO PORTABLE: NO DEFINITY: NO BUBBLE STUDY: NO DIAGNOSIS: RULE OUT ENDOCARDITIS, SEPTIC EMBOLI CARDIAC HISTORY: CATHERIZATION: NO SURGERY: NO PROSTHETIC VALVE: NO PACEMAKER: NO MEASUREMENTS (cm) DIASTOLIC (NORMALS) SYSTOLIC (NORMALS) IVSd 0.8 (0.6-1.2) LA Diam 2.9 (1.9-4.0) LVEF 59% LVIDd 5.0 (3.5-5.7) LVIDs 3.4 (2.0-3.5) %FS 32% LVPWd 1.0 (0.6-1.2) Ao Diam 2.8 (2.0-3.7) 2 DIMENSIONAL ASSESSMENT: RIGHT ATRIUM: NORMAL LEFT ATRIUM: NORMAL RIGHT VENTRICLE: NORMAL LEFT VENTRICLE: NORMAL TRICUSPID VALVE: NORMAL MITRAL VALVE: NORMAL PULMONIC VALVE: NORMAL AORTIC VALVE: NORMAL PERICARDIAL EFFUSION: NONE AORTIC ROOT: NORMAL LEFT VENTRICULAR WALL MOTION: NORMAL. DOPPLER/COLOR FLOW: NOT REQUESTED. COMMENTS: NORMAL LEFT VENTRICULAR SIZE AND FUNCTION. NO VEGETATION. TRACE OF PERICARDIAL EFFUSION. TECHNOLOGIST: ALINE VAIL
[2019-05-06] MEDS: VANCOMYCIN 1.5 GM in NA CHLORIDE 0.9% 500 ML IVPB SCH (13:00)
[2019-05-06] MEDS: IBUPROFEN 600 MG TAB PO PRN (13:34)
[2019-05-06] MEDS ORDERED: IPRATROPIUM BROM 0.5MG/2.5ML NEB SCH (14:00)
[2019-05-06] MEDS: ALBUTEROL 2.5 MG/3 ML NEB SOL NEB SCH ×2 (14:05→20:38)
[2019-05-07] MEDS: VANCOMYCIN 1.5 GM in NA CHLORIDE 0.9% 500 ML IVPB SCH ×2 (00:19→13:57)
[2019-05-07] MEDS: ALBUTEROL 2.5 MG/3 ML NEB SOL NEB SCH ×4 (02:25→20:00)
[2019-05-07] MEDS: ACETAMINOPHEN 325 MG TABLET PO SCH ×4 (03:52→23:19)
[2019-05-07] MEDS: IBUPROFEN 600 MG TAB PO PRN (04:49)
[2019-05-07] MEDS: MORPHINE 2 MG/ML SYR IV PRN ×5 (05:11→23:20)
[2019-05-07 05:15] LABS: Protime INR 1.63
[2019-05-07 08:55] LABS: Absolute Lymphocytes (CBC) 2.2 K/uL (0.7-4.9); Basophils % 0.4 % (0-1.3); Hematocrit 30.3 % (39.6-49.0); Lymphocytes % 6.7 % (15.3-44.8); MPV 10.2 fL (7.6-11.3); RBC Red Blood Cell Count 3.48 M/uL (4.33-5.43)
[2019-05-07 09:08] LABS: ALT/SGPT 25 U/L (12-78); AST/SGOT 42 U/L (15-37); Albumin 1.4 g/dL (3.4-5.0); Alkaline Phosphatase 136 U/L (45-117); BUN Blood Urea Nitrogen 14 mg/dL (7-18); Bicarbonate 24 mmol/L (21-32); Glucose Level 113 mg/dL (74-106); Potassium 3.9 mmol/L (3.5-5.1); Protein, Total 5.9 g/dL (6.4-8.2); Sodium Level 138 mmol/L (136-145)
[2019-05-07] MEDS: FLUCONAZOLE 100mg IVPB 100 MG/50 ML BAG IV SCH (09:48)
[2019-05-07] MEDS: CEFEPIME/SWI 1gm 10 ML IVP SCH (09:49)
[2019-05-07] MEDS: GUAIFENESIN/CODEINE 5ML UCUP PO PRN ×2 (10:19→16:16)
[2019-05-07 10:28] LABS: Platelet Estimate ADEQ
[2019-05-07] MEDS: PIPER/TAZO/NS 3.375gm 3.375 GM/100 ML BAG IVPB SCH ×2 (10:36→16:19)
[2019-05-07 10:37] LABS: Anisocytosis 1+; Blood Morphology Comment NOTED (NOT SEEN)
[2019-05-07] MEDS ORDERED: NA CHLORIDE 0.9% 1,000 ML IV SCH (12:00)
--- NOTE | 2019-05-07 12:04 | P.PN ---
Subjective Date of Service: 05/21/19 Chief Complaint: Pneumonia Patient is feeling better CPAP is helping still febrile white count is significantly elevated Review of Systems General: Weakness Respiratory: Cough, Shortness of Breath Cardiovascular: Chest Pain Physical Examination - Vital Signs Temperature: 98.5 F Blood Pressure: 122/67 Pulse: 95 Respirations: 34 Pulse Ox (%): 100 - Physical Exam General: Alert, Oriented x3 Respiratory: Diminished (Diminished air entry bilaterally with bilateral basilar crackle) Cardiovascular: No edema, Regular rate/rhythm - Studies Microbiology Data (last 24 hrs): 05/03/19 13:20 Blood - Blood Blood Culture Gram Stain - Final 05/03/19 13:40 Blood - Blood Aerobic Blood Culture - Final 05/03/19 13:40 Blood - Blood Blood Culture Gram Stain - Final Medications List Reviewed: Yes Assessment & Plan - Problems (Diagnosis) (1) Pneumonia Status: Acute Plan: Patient is improving although he has white count is significantly elevated loculated pleural effusion on the left side most likely it is infected he will need to be transferred to a tertiary care unit for decortication white count is increasing is currently 33,000 blood cultures positive but is not pneumococcus Qualifiers: Pneumonia type: due to unspecified organism Physician Review: Patient Assessed, Agree with Above Assessment and Plan
--- NOTE | 2019-05-07 12:25 | RAD REPORT ---
EXAM DESCRIPTION: CT - Chest Abdomen Pelvis W Cont - 05/07/2019 11:20 am CLINICAL HISTORY: Chest and abdomen pain. CT chest, abdomen, pelvis with contrast COMPARISON: Chest For Pe Angio dated 05/04/2019 TECHNIQUE: Approximately 100 mL nonionic IV contrast was administered to the patient. All CT scans are performed using dose optimization technique as appropriate and may include automated exposure control or mA/KV adjustment according to patient size. FINDINGS: Moderate loculated pleural effusions are present bilaterally.Airspace opacities are presen t in the lung bases with internal areas diminished density seen. Several of the infiltrates have a no dular appearance with areas of internal lucency. This may indicate a cavitary pneumonia, septic embol i or related to tuberculosis.No pericardial fluid.No intrathoracic adenopathy. The liver, spleen, pancreas, adrenal glands and kidneys are within normal limits. No bowel obstruction, free air, free fluid or abscess. Normal appendix. No pathologic lymphadenopath y in the abdomen or pelvis. No worrisome osseous finding. IMPRESSION: Moderate bilateral loculated pleural effusions are present with bilateral areas of airsp gómez in consolidation and nodular opacities with internal areas of hypodensity seen.Findings may indic ate a cavitary type pneumonia, tuberculosis or septic emboli. Overall, findings appear mildly progres sive since 05/04/2019 study.
--- NOTE | 2019-05-07 12:34 | RAD REPORT ---
EXAM DESCRIPTION: RAD - Chest Single View - 05/07/2019 6:08 am CLINICAL HISTORY: Pneumonia Chest pain. COMPARISON: Chest Single View dated 05/05/2019; Chest Single View dated 05/03/2019 FINDINGS: Portable technique limits examination quality. Mild worsening is seen in lung aeration compared to 05/05/2019 study. Loculated pleural fluid is pres ent bilaterally, mildly progressive. The heart is normal in size. No displaced fractures.
--- NOTE | 2019-05-07 14:01 | P.PN ---
Subjective Date of Service: 05/07/19 Chief Complaint: Pneumonia remains febrile. pleuritic chest pain. denies any new complaints. Physical Examination - Vital Signs Temperature: 98.5 F Blood Pressure: 122/67 Pulse: 95 Respirations: 34 Pulse Ox (%): 100 - Physical Exam General: Alert, In no apparent distress HEENT: Atraumatic, PERRLA, EOMI Neck: Supple, JVD not distended Respiratory: Diminished, Dull, Crackles/rales Cardiovascular: Normal S1 S2, Irregular heart rate/rhythm Gastrointestinal: Normal bowel sounds, No tenderness Musculoskeletal: No tenderness Integumentary: No rashes Neurological: Normal speech, Normal tone, Normal affect Lymphatics: No axilla or inguinal lymphadenopathy - Studies Laboratory Tests 05/07/19 05/07/19 08:44 08:44 WBC 33.5 H* RBC 3.48 L Hgb 10.3 L Hct 30.3 L Plt Count 263 D Basophils % 0.4 Sodium 138 Potassium 3.9 Carbon Dioxide 24 BUN 14 Creatinine 0.53 L Calcium 7.7 L Serum Total Protein 5.9 L Microbiology Data (last 24 hrs): 05/03/19 13:20 Blood - Blood Blood Culture Gram Stain - Final 05/03/19 13:40 Blood - Blood Aerobic Blood Culture - Final 05/03/19 13:40 Blood - Blood Blood Culture Gram Stain - Final Medications List Reviewed: Yes Assessment & Plan Physician Review: Patient Assessed, Agree with Above Assessment and Plan Physician Review Additional Text: Mr. Limon is 19 y/o male pw cough and sob. #Severe sepsis 2/2 to pneumonia- Severe sepsis POA. Maintaining BP and MAP > 65 - Tbili & procal elevated. Lactic acid wnl. - IV hydration. Maintain perfusion - Continue supportive measures. #Pneumonia with bacteremia- CT chest with significant infiltrates, also concerning for septic embolic. TTE neg for vegetations. Leukocytosis worsen and procalcitonin improving. Toxic granulation on differential. -repeat CT chest today with loculated pleural effusion with progressive infiltrates. Persistent fever and leukocytosis due to possible empyema. 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 -Revised abx- zosyn & Vanc. -COVID19 ruled out. -Influenza negative. -Elevated T bili-hemolysis ruled out -consulted Infectious Disease and setter automatic spinning lathe for assistance. Recommendation appreciated #Acute respiratory distress-Due to pnuemonia. BIPAP PRN -patient is tachypneic and tachycardic as well. -low threshold for intubation. -Duoneb, pulm toileting. -serial CXR as needed. -bilateral pleural effusion suggestive of empyema #Coagulopathy secondary to sepsis-DIC is unlikely due to elevated fibrinogen, unless of subclinical DIC. PT/INR and PTT is prolonged. -no significant bleeding. -tea-colored urine noted. Hematuria ruled out -treat underlining etiology. No indication for reversal of coagulopathy. -monitor for bleeding -discussed with hander in web production manager. -improving #Thrombocytopenia- due to sepsis. Improving. #Electrolyte imbalance-hypokalemia and hyponatremia secondary to hypovolemia. -will replace. -monitor closely with daily labs. #Hyperglycemia-secondary to sepsis. Patient denies prior history of diabetes. #Vomiting and diarrhea-now resolved DVT ppx- initiate lovenox. Patient is full code. Dispo- transfer initiated to [place] for treatment of loculated pleural effusion.
[2019-05-07] MEDS: FUROSEMIDE 40 MG/4 ML VIAL IV ONE ×2 (17:12→17:20)
--- NOTE | 2019-05-07 18:07 | RAD REPORT ---
EXAM DESCRIPTION: RAD - Chest Single View - 05/07/2019 5:21 pm CLINICAL HISTORY: R/O Pneumothorax, sudden onset dyspnea, tachypnea Chest pain. COMPARISON: Chest Single View dated 05/07/2019; Chest Single View dated 05/05/2019; Chest Single View dated 05/03/2019 FINDINGS: Portable technique limits examination quality. Bilateral pleural effusions and bilateral pulmonary opacities appears essentially unchanged since sin ce comparative study. No evidence of pneumothorax. The heart is normal in size. No displaced fracture s. IMPRESSION: No measurable pneumothorax seen.
[2019-05-07 22:44] VITALS: O2SAT 97
[2019-05-08] MEDS ORDERED: VANCOMYCIN 1.75 GM in NA CHLORIDE 0.9% 500 ML IVPB SCH (01:00)
--- NOTE | 2019-05-08 09:16 | P.DS ---
Admission Date: 05/03/19 Discharge Date: 05/08/19 Disposition: TRANSFER TO 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 Teacher Infectious Disease Brief History of Present Illness: Admission diagnosis- severe sepsis present on admission secondary to suspected viral pneumonia Viral pneumonia Acute respiratory failure with hypoxia Thrombocytopenia and lymphopenia Electrolyte imbalance Hyperglycemia Vomiting and diarrhea Discharge diagnosis-severe sepsis secondary to pneumonia present on admission Complicated Pneumonia with bacteremia Acute respiratory distress with bilateral loculated pleural effusion Coagulopathy secondary to sepsis Thrombocytopenia Electrolyte imbalance hyperglycemia Vomiting and diarrhea Hospital Course: Mr. Limon is 19-year-old male with no significant medical history who presented to the hospital with complaints of shortness of breath and cough. Patient reported positive influenza test 7 days prior to presentation. He also reported subjective fever, nausea, vomiting and diarrhea. He denied any contact with a COVID positive individual or sick contacts. Upon presentation to the hospital, patient was tachypneic, tachycardic and in respiratory distress. He was placed in ICU droplet isolation and COVID19 tests was done, and negative. Initial evaluation with chest x-ray shows bilateral infiltrates, suspicious of viral pneumonia. Further testing with CT chest showed bilateral infiltrate with small pleural effusion, consistent with pneumonia & unlikely to be viral pneumonia. He was continued on IV antibiotics, supplemental oxygen and pulmonary toileting. Patient continued to have increased oxygen requirement despite treatment. He remained in severe sepsis with coagulopathy secondary to sepsis. DIC was ruled out. Blood culture grew gram-positive coccus in chains and clusters, preliminary report. Final report is pending. Repeat culture however showed no growth in [address] chest demonstrated worsening of the pleural effusion, concerning for loculated effusion. Patient's leukocytosis continued to worsen and he remained febrile. Given loculated pleural effusion, possible empyema, patient has been accepted to [facility] for [facility] evaluation and treatment. He remained hemodynamically stable for transfer. Vital Signs/Physical Exam: Temp Pulse Resp BP Pulse Ox 101.4 F H 113 H 31 H 117/60 100 05/07/19 23:19 05/07/19 23:00 05/07/19 23:20 05/07/19 22:00 05/07/19 23:20 Laboratory Data at Discharge: WBC 33.5 K/uL (4.3-10.9) H* 05/07/19 08:44 Hgb 10.3 g/dL (13.6-17.9) L 05/07/19 08:44 Hct 30.3 % (39.6-49.0) L 05/07/19 08:44 Plt Count 263 K/uL (152-406) D 05/07/19 08:44 PT 19.0 SECONDS (9.5-12.5) H 05/07/19 04:58 INR 1.63 05/07/19 04:58 APTT 29.5 SECONDS (24.3-36.9) 05/07/19 04:58 Sodium 138 mmol/L (136-145) 05/07/19 08:44 Potassium 3.9 mmol/L (3.5-5.1) 05/07/19 08:44 BUN 14 mg/dL (7-18) 05/07/19 08:44 Creatinine 0.53 mg/dL (0.55-1.3) L 05/07/19 08:44 Glucose 113 mg/dL (74-106) H 05/07/19 08:44 Magnesium 1.9 mg/dL (1.8-2.4) 05/07/19 04:58 Total Bilirubin 2.0 mg/dL (0.2-1.0) H 05/07/19 08:44 AST 42 U/L (15-37) H 05/07/19 08:44 ALT 25 U/L (12-78) 05/07/19 08:44 Alkaline Phosphatase 136 U/L (45-117) H 05/07/19 08:44 Triglycerides 299 mg/dL (<150) H 05/04/19 07:09 Cholesterol 84 mg/dL (<200) 05/04/19 07:09 HDL Cholesterol 11 mg/dL (40-60) L 05/04/19 07:09 Cholesterol/HDL Ratio 7.64 05/04/19 07:09 Lipase 52 U/L (73-393) L 05/03/19 12:30 Home Medications: NK [No Home Meds] 05/03/19 Patient Discharge Instructions: Transfer to [facility] for higher level of care as patient needs a CT surgeon Diet: Regular Activity: Bedrest
[2019-05-10 14:49] LABS: HIV AG/AB 4TH GEN Non-reactive (Non-reactive)
[2019-05-21 11:03] VITALS: BP 122/67; TEMP 98.5
== END 2019-05-07 23:20 | disposition short-term general hospital (02) | DRG 871 ==
LOC: ER 12:23 → SUPCPDRO 12:23 → 4TH 15:44 → 3RD-ICU 05-04 14:25
PROVIDERS: ADMIT Hospitalist; ATTEND Hospitalist
DX: A41.9 Sepsis, unspecified organism (principal); J96.01 Acute respiratory failure with hypoxia; J18.9 Pneumonia, unspecified organism; E87.1 Hypo-osmolality and hyponatremia; D68.9 Coagulation defect, unspecified; R65.20 Severe sepsis without septic shock; Z20.828 Contact with and (suspected) exposure to other viral communicable diseases; D69.6 Thrombocytopenia, unspecified; D72.810 Lymphocytopenia; E87.8 Other disorders of electrolyte and fluid balance, not elsewhere classified; R73.9 Hyperglycemia, unspecified; E87.6 Hypokalemia; E86.1 Hypovolemia; E88.09 Other disorders of plasma-protein metabolism, not elsewhere classified
CPT/HCPCS: 36415; 71045; 71260; 71275; 74177; 80053; 80061; 80202; 80307; 81001; 82248; 83605; 83615; 83690; 83735; 84132; 84145; 85025; 85044; 85379; 85384; 85610; 85730; 87040; 87070; 87081; 87086; 87088; 87205; 87389; 87804; 93307; 94640; 94660; 94760; 96361; 96374; 99285; J0456; J0692; J0696; J1450; J1940; J2270; J2543; J7030; J7040; Q9967; U0001